=== PATIENT | male | born 1960 | race Caucasian/White ===

== ENCOUNTER 2022-03-12 23:50 | Emergency (ER) | payer MEDICAID ==
[2022-03-12] MEDS ORDERED: Acetaminophen 325 MG Tab PO ONE (23:55)
[2022-03-13] MEDS ORDERED: Orphenadrine 60 MG/2 ML Inj IM ONE (01:15)
== END 2022-03-13 02:00 | disposition home or self-care (01) ==
LOC: VM.ED 23:50
DX: S46.911A Strain of unspecified muscle, fascia and tendon at shoulder and upper arm level, right arm, initial encounter (principal); W01.0XXA Fall on same level from slipping, tripping and stumbling without subsequent striking against object, initial encounter
CPT/HCPCS: 73000; 73020; 73200; 96372; 99283; A9270; J2360